=== PATIENT | male | born 1955 | race Two or more races ===

== ENCOUNTER 2024-11-17 15:29 | Inpatient (IN) | payer OTHER ==
[~2024-11-17] VITALS: Ht 190.5 cm; Wt 103.0 kg
--- NOTE | 2024-11-17 15:45 | ED.PDOC ---
HPI Comments 69 y.o male presents to the ED via EMS for a chief complaint of palpitations and chest discomfort s/p lifting a heavy car part today, that is now associated with chest pressure. EMS reports on scene, HR read 150, was AFib RVR. EMS administrated 150 CC IV fluid bolus. Patient reports similar episode years ago s/p drinking an energy drink but was never evaluated for it. Patient denies any SOB, nausea, vomiting, fever, chills. No medical history or allergies reported. Time Seen by MD: 15:38 Reviewed Notes: Nurses Notes, Director [employer] Notes, Medications, Allergies Allergies: Coded Allergies: NO KNOWN ALLERGIES (Unverified , 11/17/24) Information Source: Patient, Emergency Med Personnel Mode of Arrival: EMS Severity: Moderate Timing: Hours Duration: Since onset Prehospital treatment: 12 Lead EKG, Manufacturing Management Associate, IVF Location: Substernal Radiation: No Radiation Quality: Pressure, Aching Onset: At Rest Cardiac Risk Factors: None PE Risk Factors: None History of: Similar pain in past Modifying Factors: Nothing Associated Signs and Symptoms: Palpitations Past Medical History PAST MEDICAL HISTORY: Denies Surgical History: Denies all surgeries Family History Family History: Reviewed,noncontributory to illness Social History Smoker: Non-Smoker Alcohol: Denies ETOH Use Drugs: Denies Drug Use Lives In: Home Constitutional: denies: chills, diaphoresis, fatigue, fever, malaise, sweats, weakness, others EENTM: denies: blurred vision, double vision, ear bleeding, ear discharge, ear drainage, ear pain, ear ringing, eye pain, eye redness, hearing loss, mouth pain, mouth swelling, nasal discharge, nose bleeding, nose congestion, nose pain, photophobia, tearing, throat pain, throat swelling, voice changes, others Respiratory: denies: cough, hemoptysis, orthopnea, SOB at rest, shortness of breath, SOB with excertion, stridor, wheezing, others Cardiovascular: reports: chest pain, palpitations; denies: dizzy spells, diapho resis, Dyspnea on exertion, edema, irregular heart beat, left arm pain, lightheadedness, PND, syncope, others Gastrointestinal: denies: abdomen distended, abdominal pain, blood streaked bowels, constipated, diarrhea, dysphagia, difficulty swallowing, hematemesis, melena, nausea, poor appetite, poor fluid intake, rectal bleeding, rectal pain, vomiting, others Genitourinary: denies: burning, dysuria, flank pain, frequency, hematuria, incontinence, penile discharge, penile sore, pain, testicle pain, testicle swelling, urgency, others Neurological: denies: dizziness, fainting, headache, left sided numbness, left sided weakness, numbness, paresthesia, pre-existing deficit, right sided numbness, right sided weakness, seizure, speech problems, tingling, tremors, weakness, others Musculoskeletal: denies: back pain, gout, joint pain, joint swelling, muscle pain, muscle stiffness, neck pain, others Integumetry: denies: bruises, change in color, change in hair/nails, dryness, laceration, lesions, lumps, rash, wounds, others Allergic/Immunocompromised: denies: Difficulty Healing, Frequent Infections, Hives, Itching, others Hematologic/Lymphatic: denies: anemia, blood clots, easy bleeding, easy bruising, swollen glands, others Endocrine: denies: excessive hunger, excessive sweating, excessive thirst, excessive urination, flushing, intolerance to cold, intolerance to heat, unexplained weight gain, unexplained weight loss, others Psychiatric: denies: anxiety, bipolar disorder, depression, hopeless, panic disorder, schizophrenia, sleepless, suicidal, others All Other Systems: Reviewed and Negative Physical Exam General Appearance: No Apparent Distress, Normal HEENT: Other (Pupils and face symmetric. Moist mucous membranes.) Neck: Full Range of Motion, Normal Inspection Respiratory: Lungs Clear, No Accessory Muscle Use, No Respiratory Distress, Normal Breath Sounds Cardiovascular: No Edema, No JVD, Tachycardia Breast Exam: Deferred Gastrointestinal: Non Tender, Soft Genitalia: Deferred Pelvic: Deferred Rectal: Deferred Extremities: Normal inspection, Normal range of motion, Non-tender, No pedal edema Neurologic: Alert (Oriented x4), Normal Affect, Normal Mood, Other (Ambulatory) Cerebellar Function: NOT DONE Reflexes: NOT DONE Skin: Dry, Normal Color, Warm Lymphatic: NOT DONE EKG EKG #1: Comments Wide complex tachycardia, rate 245, QRS 136, QTC 501, indeterminate axis, unable to evaluate for ST/T changes due to rapid rate EKG #2: Comments Sinus or ectopic atrial tachycardia, rate 126, normal IA and QRS intervals, QTC 451, right axis deviation, normal QRS, lateral ST depression EKG #3: Comments Sinus rhythm, rate 60, normal intervals, normal axis, normal QRS, no ST/T changes. Was a procedure done? Was a procedure done?: No CP Differential Dx Differential Diagnosis: A-fib, A-Flutter, Anxiety / Panic Attack, Electrolyte Disorder, Heart Failure, MAT, ME, Pulmonary Embolus, Sinus Tachycardia, Torsades De Pointes, Ventricular Dysrhythmia, V-Tach Differential Diagnosis: Angina, Chest Wall Pain, Myocardial Infarction, Pericarditis X-Ray, Labs, Meds, VS Vital Signs Date Time Temp Pulse Resp B/P (MAP) Pulse Ox O2 Delivery O2 Flow Rate FiO2 11/17/24 18:54 60 11/17/24 18:32 122 11/17/24 18:00 98.3 127 12 121/76 (91) 95 98.3 11/17/24 17:00 98.2 129 18 126/97 (107) 93 98.2 11/17/24 16:56 126 11/17/24 15:50 98.2 124 18 123/97 (106) 95 98.2 11/17/24 15:50 123 18 94 Room Air* 0 21 11/17/24 15:38 245 11/17/24 15:29 97.8 130 20 151/112 (125) 96 97.8 Lab Test 11/17/24 17:45 11/17/24 16:50 11/17/24 16:20 Range/Units Troponin I High Sensitivity 45 31 </=54 ng/L White Blood Count 8.3 4.4-10.8 10^3/uL Red Blood Count 5.21 4.5-5.90 10^6/uL Hemoglobin 17.1 13.5-17.5 g/dL Hematocrit 48.8 41.0-53.0 % Mean Corpuscular Volume 93.7 80.0-100.0 fL Mean Corpuscular Hemoglobin 32.8 H 28.0-32.0 pg Mean Corpuscular Hemoglobin Concent 35.0 32.0-36.0 g/dL Red Cell Distribution Width 13.0 11.8-14.3 % Platelet Count 216 140-450 10^3/uL Mean Platelet Volume 7.0 6.9-10.8 fL Neutrophils (%) (Auto) 70.0 37.0-80.0 % Lymphocytes (%) (Auto) 20.6 10.0-50.0 % Monocytes (%) (Auto) 8.0 0.0-12.0 % Eosinophils (%) (Auto) 0.9 0.0-7.0 % Basophils (%) (Auto) 0.5 0.0-2.0 % Neutrophils # (Auto) 5.8 1.6-8.6 10 ^3/uL Lymphocytes # (Auto) 1.7 0.4-5.4 10 ^3/uL Monocytes # (Auto) 0.7 0-1.3 10 ^3/uL Eosinophils # (Auto) 0.1 0-0.8 10 ^3/uL Basophils # (Auto) 0 0-0.2 10 ^3/uL Nucleated Red Blood Cells 0.3 % Sodium Level 143 136-145 mmol/L Potassium Level 4.2 3.5-5.1 mmol/L Chloride Level 110 H 98-107 mmol/L Carbon Dioxide Level 21 20-31 mmol/L Anion Gap 12 5-15 Blood Urea Nitrogen 8 L 9-23 mg/dL Creatinine 0.75 0.700-1.30 mg/dL Glomerular Filtration Rate Calc 98 >90 mL/min BUN/Creatinine Ratio 10.7 10.0-20.0 Serum Glucose 157 H 74-106 mg/dL Calcium Level 10.1 8.7-10.4 mg/dL B-Type Natriuretic Peptide 30.90 0-100 pg/mL Thyroid Stimulating Hormone (TSH) 2.26 0.55-4.78 uIU/mL Urine Color Colorless Yellow Urine Clarity Clear Clear Urine pH 6.5 5.0-9.0 Urine Specific [place] 1.004 1.001-1.035 Urine Protein Negative Negative Urine Ketones Negative Negative Urine Blood Negative Negative /uL Urine Nitrite Negative Negative Urine Bilirubin Negative Negative Urine Urobilinogen Normal Negative mg/dL Urine Leukocyte Esterase Negative Negative /uL Urine RBC None seen 0 - 3 /hpf Urine Microscopic WBC < 1 0-3 /HPF Urine Squamous Epithelial Cells None seen <5 /hpf Urine Bacteria None seen None Seen /hpf Urine Glucose Normal Normal mg/dL Urine Opiates Screen Neg NEGATIVE Urine Fentanyl Screen Neg NEGATIVE Urine Barbiturates Screen Neg NEGATIVE Urine Phencyclidine Screen Neg NEGATIVE Urine Amphetamines Screen Neg NEGATIVE Urine Benzodiazepines Screen Neg NEGATIVE Urine Cocaine Screen Neg NEGATIVE Urine Cannabinoids Screen Neg NEGATIVE Current Medications Medications (Trade) Dose Ordered Sig/Sanjuanita Route Start Time Stop Time Status Last Admin Amiodarone HCl 100 ml @ 600 mls/hr ONCE ONCE IV 11/17/24 15:45 11/17/24 15:54 DC 11/17/24 15:49 Aspirin 325 mg ONCE ONCE PO 11/17/24 16:00 11/17/24 16:01 DC 11/17/24 16:02 Sodium Chloride 1,000 ml @ 1,000 mls/hr Q1H ONCE IV 11/17/24 17:15 11/17/24 18:14 DC 11/17/24 17:29 PROCEDURE(s): CXRP - CHEST PORTABLE REASON: afib rvr ORDER NUMBER(s): [id number], ACCESSION NUMBER(s): [id number] CHEST RADIOGRAPH Indication: afib rvr Technique: Single frontal view of the chest was obtained COMPARISON: None FINDINGS: Lines and Tubes: None Lungs: Clear Pleura: No effusion. No pneumothorax. Cardiomediastinal contours: Unremarkable Bones: Unremarkable IMPRESSION: 1. No acute disease. X-Ray, Labs, Meds, VS Comment 69-year-old male with no significant past medical history presenting with chest pressure, palpitations and tachycardia Initial vitals remarkable for heart rate to 45 Exam remarkable for tachycardia Rhythm strip independently interpreted by me: Wide complex tachycardia, rate to 45 Chest x-ray IMPRESSION: 1. No acute disease. CBC, basic metabolic panel, BNP and 2 serial troponins unremarkable. UA unremarkable. Urine drug screen negative Patient treated with the following in the ED: Patient initially converted to sinus tach when transferred from the EMS gurney to a bed. Amiodarone 150 mg IV bolus followed by amiodarone infusion, then 1 L 0.9 normal saline IV bolus On re-evaluation, patient was in a sinus rhythm at a rate of 60. The amiodarone infusion was discontinued. Plan is to admit the patient for Cardiology evaluation. Case discussed with Dr. Butler, who will see the patient in the ED. Time of 1ST Reevaluation: 14:00 Reevaluation 1ST: Unchanged Time of 2ND Reevaluation: 19:52 Reevaluation 2ND: Improved Patient Education/Counseling: Diagnosis, Treatment, Prognosis Family Education/Counseling: No Family Present Departure 1 Departure Time of Disposition: 18:30 Impression: Primary Impression: Tachycardia Disposition: 09 ADMITTED INPATIENT Admit to: Tele Condition: Guarded Critical Care Note Critical Care Time?: Yes (45 min-critical care time only) Critical care comment: Critical care time including multiple bedside re-evaluations, review of lab and imaging studies, and discussion of the case with the admitting provider. Patient is high risk for hemodynamic decompensation. Stability Stability form required: No Heart Score Heart Score: Heart Score Response (Comments) Value History Moderate Suspicious [address]-Deviation 2 Age >65 2 Risk Factors No known risk factors 0 Troponin Normal limit 0 Total 5 I personally scribed for MATEO REYES MD ([facility]) on 11/17/24 at 15:45. Electronically submitted by Regina Buck ([facility]). MATEO REYES MD November 17, 2024 15:45
[2024-11-17] MEDS: AMIODARONE BOLUS KIT 100 ML IV ONE ×2 (15:49→15:50)
[2024-11-17 15:50] VITALS: PULSE 123; RESP 18; O2SAT 94
[2024-11-17] MEDS: AMIODARONE 360mg/200mL PREMIX 200 ML IV ONE (16:00)
[2024-11-17] MEDS: ASPirin 325 MG TAB PO ONE (16:02)
--- NOTE | 2024-11-17 16:16 | DVH ---
CHEST RADIOGRAPH Indication: afib rvr Technique: Single frontal view of the chest was obtained COMPARISON: None FINDINGS: Lines and Tubes: None Lungs: Clear Pleura: No effusion. No pneumothorax. Cardiomediastinal contours: Unremarkable Bones: Unremarkable IMPRESSION: 1. No acute disease.
[2024-11-17 16:59] LABS: Urine Bacteria None Seen /hpf (None Seen)
[2024-11-17 16:59] LABS: Basophils # (auto) 0 10 ^3/uL (0-0.2); Basophils % (auto) 0.5 % (0.0-2.0); Eosinophils # (auto) 0.1 10 ^3/uL (0-0.8); Eosinophils % (auto) 0.9 % (0.0-7.0); Hematocrit 48.8 % (41.0-53.0); Hemoglobin 17.1 g/dL (13.5-17.5); Lymphocytes # (auto) 1.7 10 ^3/uL (0.4-5.4); Lymphocytes % (auto) 20.6 % (10.0-50.0); Mean Corpuscular Hemoglobin 32.8 pg (28.0-32.0); Mean Corpuscular Volume 93.7 fL (80.0-100.0); Monocytes # (auto) 0.7 10 ^3/uL (0-1.3); Neutrophils # (auto) 5.8 10 ^3/uL (1.6-8.6); Nucleated Red Blood Cells % 0.3 %; Platelet Count (auto) 216 10^3/uL (140-450); Red Blood Cells 5.21 10^6/uL (4.5-5.90); White Blood Cell 8.3 10^3/uL (4.4-10.8)
[2024-11-17 17:06] LABS: Urine Blood Negative /uL (Negative); Urine Clarity Clear (Clear); Urine Color Colorless (Yellow); Urine Protein, UAD Negative (Negative); Urine Specific Gravity 1.004 (1.001-1.035); Urine Squamous Epithelial Cell None Seen /hpf (<5); Urine Urobilinogen Normal (Negative); Urine WBC < 1 /HPF (0-3); Urine pH 6.5 (5.0-9.0)
[2024-11-17 17:10] LABS: Chloride 110 mmol/L (98-107); Potassium 4.2 mmol/L (3.5-5.1); Sodium 143 mmol/L (136-145)
[2024-11-17 17:11] LABS: Anion Gap 12 (5-15); Calcium 10.1 mg/dL (8.7-10.4); Carbon Dioxide 21 mmol/L (20-31)
[2024-11-17 17:16] LABS: BUN/Creatinine Ratio 10.7 (10.0-20.0); Blood Urea Nitrogen 8 mg/dL (9-23); Glucose 157 mg/dL (74-106)
[2024-11-17] MEDS: SODIUM CHLORIDE 0.9% 1,000 ML IV ONE (17:29)
[2024-11-17 17:30] LABS: Amphetamine Screen, Urine Neg (NEGATIVE); Barbiturate Scree,Urine Neg (NEGATIVE); Benzodiazephine Screen, Urine Neg (NEGATIVE); Cannabinoid Screen, Urine Neg (NEGATIVE); Cocaine Screen, Urine Neg (NEGATIVE); Opiate Scree,Urine Neg (NEGATIVE); Phencyclidine Screen, Urine Neg (NEGATIVE)
[2024-11-17] MEDS ORDERED: MORPHINE SULFATE INJ 2 MG/ml SYRG IV PRN (19:15)
[2024-11-17] MEDS ORDERED: ONDANSETRON HCL 4 MG/2 ML VIAL IV PRN (19:15)
[2024-11-17] MEDS ORDERED: NITROGLYCERIN 0.4 MG SL TAB SL PRN (19:15)
[2024-11-17 19:28] VITALS: PULSE 71; RESP 18; O2SAT 96
[2024-11-18] MEDS ORDERED: ONDANSETRON HCL 4 MG/2 ML VIAL IV PRN (01:00)
[2024-11-18] MEDS ORDERED: NITROGLYCERIN 0.4 MG SL TAB SL PRN (01:00)
[2024-11-18] MEDS ORDERED: MORPHINE SULFATE INJ 2 MG/ml SYRG IV PRN (01:00)
[2024-11-18 09:08] VITALS: PULSE 50; RESP 19; O2SAT 96
[2024-11-18] MEDS ORDERED: ASPirin 81 mg TAB PO SCH (10:00)
[2024-11-18] MEDS ORDERED: ENOXAPARIN SOD 40 MG/0.4 ML SYRINGE SC SCH (10:00)
[2024-11-18] MEDS: ASPirin-EC 81 mg tab PO SCH (10:48)
--- NOTE | 2024-11-18 12:22 | ECG ---
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
[2024-11-18 15:58] VITALS: BP 143/89; PULSE 56; RESP 18; TEMP 97.7; O2SAT 95
[2024-11-18 20:00] VITALS: PULSE 69
[2024-11-18 21:00] VITALS: BP 144/85; PULSE 55; RESP 18; TEMP 98; O2SAT 95
[2024-11-18] MEDS: ATORVASTATIN 20 MG TAB PO SCH (22:14)
--- NOTE | 2024-11-18 23:59 | DVHINCON2 ---
Date of service: November 17, [address] Butler Reason for Consultation Wide QRS tachycardia History of Present Illness This is a 69 year old male with unremarkable PMH who was brought in by EMS with complaints of palpitations and chest discomfort s/p lifting a heavy car part today. EMS administrated 150 CC IV fluid bolus. Patient reports similar episode years ago s/p drinking an energy drink but was never evaluated for it. CBC is WNL. BMP is WNL. Trops 31 > 45. BNP normal. Tox screen negative. UA negative. Chest x-ray shows NAD. EKG: wide complex tachycardia VR 240 and converted to sinus tachycardia in the 130 -> back into sinus rhythm VR 60. Patient was admitted to the hospital. I am asked to consult on this patient. Family History: Patient reports no known family medical history. Allergies: Coded Allergies: NO KNOWN ALLERGIES (Unverified , 11/17/24) Home Meds No Active Prescriptions or Reported Meds Current Medications Current Medications Medications (Trade) Dose Ordered Sig/Sanjuanita Route PRN Reason Start Time Stop Time Status Last Admin Aspirin 81 mg DAILY PO 11/18/24 10:00 11/17/24 22:22 DC Enoxaparin Sodium (Lovenox) 40 mg DAILY SC 11/18/24 10:00 11/17/24 22:22 DC Aspirin (Ecotrin Enteric Coated Tablet) 81 mg DAILY PO 11/18/24 10:00 11/18/24 10:48 Atorvastatin Calcium (Lipitor) 40 mg HS PO 11/18/24 22:00 11/18/24 22:14 Ondansetron HCl (Zofran) 4 mg Q6HPRN PRN IV NAUSEA / VOMITING 11/18/24 01:00 Nitroglycerin (Ntrostat Sublingual) 0.4 mg Q5MINP PRN SL FOR CHEST PAIN 11/18/24 01:00 Morphine Sulfate 2 mg Q30M PRN IV FOR CHEST PAIN 11/18/24 01:00 Review of Systems Constitutional: denies: chills, diaphoresis, fatigue, fever, malaise, sweats, weakness, others EENTM: denies: blurred vision, double vision, ear bleeding, ear discharge, ear drainage, ear pain, ear ringing, eye pain, eye redness, hearing loss, mouth pain, mouth swelling, nasal discharge, nose bleeding, nose congestion, nose pain, photophobia, tearing, throat pain, throat swelling, voice changes, others Respiratory: denies: cough, hemoptysis, orthopnea, SOB at rest, shortness of breath, SOB with excertion, stridor, wheezing, others Cardiovascular: reports: chest pain, palpitations; denies: dizzy spells, diaphoresis, Dyspnea on exertion, edema, irregular heart beat, left arm pain, lightheadedness, PND, syncope, others Gastrointestinal: denies: abdomen distended, abdominal pain, blood streaked bowels, constipated, diarrhea, dysphagia, difficulty swallowing, hematemesis, melena, nausea, poor appetite, poor fluid intake, rectal bleeding, rectal pain, vomiting, others Genitourinary: denies: burning, dysuria, flank pain, frequency, hematuria, incontinence, penile discharge, penile sore, pain, testicle pain, testicle swelling, urgency, others Neurological: denies: dizziness, fainting, headache, left sided numbness, left sided weakness, numbness, paresthesia, pre-existing deficit, right sided numbness, right sided weakness, seizure, speech problems, tingling, tremors, weakness, others Musculoskeletal: denies: back pain, gout, joint pain, joint swelling, muscle pain, muscle stiffness, neck pain, others Integumetry: denies: bruises, change in color, change in hair/nails, dryness, laceration, lesions, lumps, rash, wounds, others Allergic/Immunocompromised: denies: Difficulty Healing, Frequent Infections, Hives, Itching, others Hematologic/Lymphatic: denies: anemia, blood clots, easy bleeding, easy bruising, swollen glands, others Endocrine: denies: excessive hunger, excessive sweating, excessive thirst, excessive urination, flushing, intolerance to cold, intolerance to heat, unexplained weight gain, unexplained weight loss, others Psychiatric: denies: anxiety, bipolar disorder, depression, hopeless, panic disorder, schizophrenia, sleepless, suicidal, others All Other Systems: Reviewed and Negative Vital Signs Vital Signs Date Time Temp Pulse Resp B/P (MAP) Pulse Ox O2 Delivery O2 Flow Rate FiO2 11/18/24 21:00 98.0 55 18 144/85 (104) 95 98.0 11/18/24 15:58 Room Air* 0 21 Physical Exam GENERAL: Alert and oriented x 3. No acute distress. EYES: PERRL, EOMI. Anicteric. HENT: Moist mucous membranes. LUNGS: Clear to auscultation bilaterally. CARDIOVASCULAR: Irregular rate and rhythm. ABDOMEN: Soft, non-tender and non-distended. EXTREMITIES: No edema. NEUROLOGIC: No focal neurological deficits. SKIN: Warm, dry. Labs/Diagnostic Data Labs Test 11/18/24 00:51 11/17/24 16:50 11/17/24 16:20 Range/Units Magnesium Level 2.0 1.6-2.6 mg/dL Troponin I High Sensitivity 44 </=54 ng/L White Blood Count 8.3 4.4-10.8 10^3/uL Red Blood Count 5.21 4.5-5.90 10^6/uL Hemoglobin 17.1 13.5-17.5 g/dL Hematocrit 48.8 41.0-53.0 % Mean Corpuscular Volume 93.7 80.0-100.0 fL Mean Corpuscular Hemoglobin 32.8 H 28.0-32.0 pg Mean Corpuscular Hemoglobin Concent 35.0 32.0-36.0 g/dL Red Cell Distribution Width 13.0 11.8-14.3 % Platelet Count 216 140-450 10^3/uL Mean Platelet Volume 7.0 6.9-10.8 fL Neutrophils (%) (Auto) 70.0 37.0-80.0 % Lymphocytes (%) (Auto) 20.6 10.0-50.0 % Monocytes (%) (Auto) 8.0 0.0-12.0 % Eosinophils (%) (Auto) 0.9 0.0-7.0 % Basophils (%) (Auto) 0.5 0.0-2.0 % Neutrophils # (Auto) 5.8 1.6-8.6 10 ^3/uL Lymphocytes # (Auto) 1.7 0.4-5.4 10 ^3/uL Monocytes # (Auto) 0.7 0-1.3 10 ^3/uL Eosinophils # (Auto) 0.1 0-0.8 10 ^3/uL Basophils # (Auto) 0 0-0.2 10 ^3/uL Nucleated Red Blood Cells 0.3 % Sodium Level 143 136-145 mmol/L Potassium Level 4.2 3.5-5.1 mmol/L Chloride Level 110 H 98-107 mmol/L Carbon Dioxide Level 21 20-31 mmol/L Anion Gap 12 5-15 Blood Urea Nitrogen 8 L 9-23 mg/dL Creatinine 0.75 0.700-1.30 mg/dL Glomerular Filtration Rate Calc 98 >90 mL/min BUN/Creatinine Ratio 10.7 10.0-20.0 Serum Glucose 157 H 74-106 mg/dL Calcium Level 10.1 8.7-10.4 mg/dL B-Type Natriuretic Peptide 30.90 0-100 pg/mL Thyroid Stimulating Hormone (TSH) 2.26 0.55-4.78 uIU/mL Urine Color Colorless Yellow Urine Clarity Clear Clear Urine pH 6.5 5.0-9.0 Urine Specific [place] 1.004 1.001-1.035 Urine Protein Negative Negative Urine Ketones Negative Negative Urine Blood Negative Negative /uL Urine Nitrite Negative Negative Urine Bilirubin Negative Negative Urine Urobilinogen Normal Negative mg/dL Urine Leukocyte Esterase Negative Negative /uL Urine RBC None seen 0 - 3 /hpf Urine Microscopic WBC < 1 0-3 /HPF Urine Squamous Epithelial Cells None seen <5 /hpf Urine Bacteria None seen None Seen /hpf Urine Glucose Normal Normal mg/dL Urine Opiates Screen Neg NEGATIVE Urine Fentanyl Screen Neg NEGATIVE Urine Barbiturates Screen Neg NEGATIVE Urine Phencyclidine Screen Neg NEGATIVE Urine Amphetamines Screen Neg NEGATIVE Urine Benzodiazepines Screen Neg NEGATIVE Urine Cocaine Screen Neg NEGATIVE Urine Cannabinoids Screen Neg NEGATIVE Assessment Wide QRS tachycardia. Plan/Recommendation I agree with your ongoing assessment and care of plan. Advised for cardiac cath. Risks and benefits discussed with the patient. Seen with Dr. Latrell Brown Lipitor. Morphine for pain management. Nitro SL. Additional plan as per the hospital course. A total of 45 minutes was spent reviewing the patient record, examining the patient, making a diagnostic and therapeutic plan, discussing this plan with medical personnel, following up on diagnostic studies and following the patient for clinical stability excluding any and all procedures. At least 50% of this time was spent in direct, [id number] contact. Plan discussed with: Patient OLIVA,CARLOS Posada MD November 18, 2024 23:59
[2024-11-19] VITALS (10 sets, daily range): BP systolic 108–160; BP diastolic 69–102; PULSE 54–88; RESP 12–18; TEMP 36.6; O2SAT 92–100
--- NOTE | 2024-11-19 00:02 | DVHPN2 ---
Progress Note - Dictate Date Seen: November 18, 2024 Medical Necessity Reason Pt with a Central, PICC or Fol: No Subjective Patient was seen and evaluated in follow up. Patient is complaining of intermittent chest palpitations. Patient is scheduled for left heart cath tomorrow. Risks and benefits were discussed with the patient. Troponin remains negative. MG is WNL at 2.0. TSH is normal at 2.26. Telemetry reviewed. vital signs Vital Sign Date Time Temp Pulse Resp B/P (MAP) Pulse Ox O2 Delivery O2 Flow Rate FiO2 11/18/24 21:00 98.0 55 18 144/85 (104) 95 98.0 11/18/24 15:58 Room Air* 0 21 Total Intake and Output 11/17/24 11/17/24 11/18/24 15:00 23:00 07:00 Intake Total 1166.66 ml Balance 1166.66 ml medications Current Medications Medications Dose Ordered Sig/Sanjuanita Route Start Time Stop Time Status Last Admin Dose Admin Aspirin 81 mg DAILY PO 11/18/24 10:00 11/18/24 10:48 Atorvastatin Calcium 40 mg HS PO 11/18/24 22:00 11/18/24 22:14 Ondansetron HCl 4 mg Q6HPRN PRN IV 11/18/24 01:00 Nitroglycerin 0.4 mg Q5MINP PRN SL 11/18/24 01:00 Morphine Sulfate 2 mg Q30M PRN IV 11/18/24 01:00 objective GENERAL: Alert and oriented x 3. No acute distress. EYES: PERRL, EOMI. Anicteric. HENT: Moist mucous membranes. LUNGS: Clear to auscultation bilaterally. CARDIOVASCULAR: Regular rate and rhythm. ABDOMEN: Soft, non-tender and non-distended. EXTREMITIES: No edema. NEUROLOGIC: No focal neurological deficits. SKIN: Warm, dry. laboratory and microbiology Laboratory Tests 11/17/24 16:50 Test 11/17/24 16:50 Range/Units Serum Glucose 157 H 74-106 mg/dL Problem List Wide QRS tachycardia. Assessment/Plan Continued all current supportive medical care. Cardiac cath. Risks and benefits discussed with the patient. Echocardiogram. Aspirin, Lipitor. Morphine for pain management. Nitro SL. Additional plan as per the hospital course. Plan discussed with: Patient CARLOS OLIVA MD November 19, 2024 00:02
--- NOTE | 2024-11-19 02:07 | DVHHP ---
ADMIT DATE: 11/18/2024 CHIEF COMPLAINT: Coming in for palpitations and chest pressure. HISTORY OF PRESENT ILLNESS: A 69-year-old male, with no significant past medical history, who presents to Emergency Room with new onset of chest palpitations and chest pressure. The patient apparently was working at home, on his car. When he lifted a car part, patient suddenly experienced chest palpitations and some discomfort. The patient said at the time also had some numbness and tingling in his face on both sides. The patient went into his home, sat down, checked his pulse, was elevated in the 150s. The patient sat there to see whether it would resolve on its own. The patient says he has had similar symptoms in the past, but only lasting for a few seconds, and given this event was not resolving, he ended up calling EMS. EMS found him to be in atrial fib with RVR, and was brought in. The patient says typically he had these symptoms in the past where he gets palpitations and they would last very briefly and go away. He has never been diagnosed with irregular heart rhythm. He does not have any heart conditions. He has not been recently sick. He denies any fevers or chills, cough or phlegm, diarrhea, constipation, bloody or tarry stools. The patient denies any exertional chest pains. He says he is pretty active, and does not have again any cardiac problems. The patient otherwise on transfer here by EMS, was given 150 mL bolus of fluids and was brought into the Emergency Room. On arrival here, patient was found to be in wide QRS tachycardia, given amiodarone 150 bolus and started on a drip. The patient converted back into sinus rhythm at his normal baseline heart rates in the 60s, where he typically lives in. PAST MEDICAL HISTORY: None. PAST SURGICAL HISTORY: None. SOCIAL HISTORY: Denies tobacco, alcohol or illicit drugs. MEDICATIONS AT HOME: The patient currently takes no medications. MEDICATION ALLERGIES: No known drug allergies. REVIEW OF SYSTEMS: A 10-point review of system was covered with patient and was negative with the exception to what was present in the history of present illness. PHYSICAL EXAMINATION: VITAL SIGNS: Temperature 97.9, pulse rate of 71, respiratory rate of 16, blood pressure 120/86. Pulse ox about 95% on room air. GENERAL: Seems to be alert and oriented x 4, not in acute distress male, lying in bed. HEENT: Normocephalic, atraumatic. Extraocular muscles are intact. Pupils are equally round, react to light and accommodation. Mucous membranes are moist. CARDIOVASCULAR: S1, S2 positive. Regular rate and rhythm. No rubs, gallops or murmurs. LUNGS: Seemed to be clear to auscultation bilaterally. No wheezes, rhonchi or rales. ABDOMEN: Seems to be soft, nontender, nondistended. Positive bowel sounds. No guarding, no rebound. EXTREMITIES: Lower extremities: No lower extremity edema, clubbing or cyanosis. NEUROLOGIC: No focal deficits. Cranial nerve testing 2-12 overall seems to be intact. LABORATORY WORKUP: Shows a white count of 8.3, H and H of 17.1/48.8, platelet count of 216,000. Sodium 142, potassium 4.2, chloride of 110, carbon dioxide of 21, anion gap of 12. BUN of 8, creatinine 0.75. Glucose of 157, calcium 10.1. BNP of 30.9. Troponins of 31 and repeat of 45. TSH of 2.26. Urinalysis was negative for infection. Toxicology screening was negative. IMAGING: Chest x-ray shows no acute cardiopulmonary disease process. EKG initially showed wide QRS tachycardia, ventricular rate of 245. Second repeated EKG after transferring into the bed in the Emergency Room since patient converted on his own to sinus tachycardic rhythm with a rate of [address] changes. Third EKG showed sinus rhythm, ventricular rate of 60, normal intervals, normal axis, normal QRS without any ST wave changes. DIAGNOSIS: Wide-complex tachycardia. PLAN: After being admitted here to the ER, patient went from wide-QRS tachycardia to sinus tachycardia type of rhythm. Initially by EMS, they believed that the patient was in AFib with RVR. The patient's history seems consistent with atrial fib with RVR that seems to be paroxysmal in nature. Cardiology did see the patient in ED and wants to do an angiogram in the morning to rule out any coronary blockages. The patient did have 2 troponins, which have been negative so far and 3rd troponin is currently pending. The patient to have also magnesium level drawn at this time. The patient to also have CBC and BMP for the morning. The patient currently will be maintained n.p.o. Aspirin enteric coated 81 mg a day as well as Lipitor 40 mg once a day will be given. The patient will be avoided from any beta-blockers, given his heart rate which is at 60 currently. The patient's amiodarone drip, which was initiated by the ER, was discontinued due to his heart rates currently. The patient is asymptomatic at this point. The patient to have nitro sublingual 0.4 mg p.r.n. q. 5 minutes as needed for chest pain, Zofran 4 mg IV p.r.n. for nausea and vomiting. SCDs to bilateral lower extremities for DVT prophylaxis. The patient is a full code. Further recommendations will depend on patient's hospital progression. Min Ruffin MD LM/KILEY/BLUE TID: [id number] RECEIPT: [id number] MTDD
[2024-11-19 06:52] LABS: INR 1.12 (0.9-1.15); Partial Thromboplastin Time 29.2 SEC (24.5-34.5); Prothrombin Time 11.7 sec (9.3-11.8)
[2024-11-19] MEDS: IODIXANOL 320MG/ML 100ML BTL IV ONE (08:24)
[2024-11-19] MEDS: ANGIOMAX 250 MG VIAL IV ONE (08:33)
[2024-11-19] MEDS: VERAPAMIL 2.5MG/ML INJ 2ML VIAL IV ONE (08:33)
[2024-11-19] MEDS: HEPARIN SODIUM (PORCINE) 5000 UNITS/ML 1ML VIAL ONE (08:33)
[2024-11-19] MEDS: SODIUM CHL 0.9% 0 ML ONE (08:34)
[2024-11-19] MEDS: MIDAZOLAM HCL 2MG/2ML 2ml VIAL (1mg/ml) ONE (08:34)
[2024-11-19] MEDS: fentaNYL CITRATE 100 MCG/2 ML VL ONE (08:34)
[2024-11-19] MEDS: LIDOCAINE 2%HCL (LOCAL ANESTH.) INJ 20ML MDV ONE (08:35)
[2024-11-19] MEDS ORDERED: METO25TA36 PO (10:40)
--- NOTE | 2024-11-19 11:47 | DVHDS2 ---
Discharge Summary Date of Admission November 17, 2024 at 19:09 Date of Discharge: November 19, 2024 Labs/Diagnostic Data: Laboratory Results Test 11/19/24 05:36 11/18/24 00:51 11/17/24 16:50 11/17/24 16:20 Prothrombin Time 11.7 sec (9.3-11.8) Prothrombin Time INR 1.12 (0.9-1.15) Activated Partial Thromboplast Time 29.2 SEC (24.5-34.5) Magnesium Level 2.0 mg/dL (1.6-2.6) Troponin I High Sensitivity 44 ng/L (</=54) White Blood Count 8.3 10^3/uL (4.4-10.8) Red Blood Count 5.21 10^6/uL (4.5-5.90) Hemoglobin 17.1 g/dL (13.5-17.5) Hematocrit 48.8 % (41.0-53.0) Mean Corpuscular Volume 93.7 fL (80.0-100.0) Mean Corpuscular Hemoglobin 32.8 pg (28.0-32.0) Mean Corpuscular Hemoglobin Concent 35.0 g/dL (32.0-36.0) Red Cell Distribution Width 13.0 % (11.8-14.3) Platelet Count 216 10^3/uL (140-450) Mean Platelet Volume 7.0 fL (6.9-10.8) Neutrophils (%) (Auto) 70.0 % (37.0-80.0) Lymphocytes (%) (Auto) 20.6 % (10.0-50.0) Monocytes (%) (Auto) 8.0 % (0.0-12.0) Eosinophils (%) (Auto) 0.9 % (0.0-7.0) Basophils (%) (Auto) 0.5 % (0.0-2.0) Neutrophils # (Auto) 5.8 10 ^3/uL (1.6-8.6) Lymphocytes # (Auto) 1.7 10 ^3/uL (0.4-5.4) Monocytes # (Auto) 0.7 10 ^3/uL (0-1.3) Eosinophils # (Auto) 0.1 10 ^3/uL (0-0.8) Basophils # (Auto) 0 10 ^3/uL (0-0.2) Nucleated Red Blood Cells 0.3 % Sodium Level 143 mmol/L (136-145) Potassium Level 4.2 mmol/L (3.5-5.1) Chloride Level 110 mmol/L (98-107) Carbon Dioxide Level 21 mmol/L (20-31) Anion Gap 12 (5-15) Blood Urea Nitrogen 8 mg/dL (9-23) Creatinine 0.75 mg/dL (0.700-1.30) Glomerular Filtration Rate Calc 98 mL/min (>90) BUN/Creatinine Ratio 10.7 (10.0-20.0) Serum Glucose 157 mg/dL (74-106) Calcium Level 10.1 mg/dL (8.7-10.4) B-Type Natriuretic Peptide 30.90 pg/mL (0-100) Thyroid Stimulating Hormone (TSH) 2.26 uIU/mL (0.55-4.78) Urine Color Colorless (Yellow) Urine Clarity Clear (Clear) Urine pH 6.5 (5.0-9.0) Urine Specific [place] 1.004 (1.001-1.035) Urine Protein Negative (Negative) Urine Ketones Negative (Negative) Urine Blood Negative /uL (Negative) Urine Nitrite Negative (Negative) Urine Bilirubin Negative (Negative) Urine Urobilinogen Normal mg/dL (Negative) Urine Leukocyte Esterase Negative /uL (Negative) Urine RBC None seen /hpf (0 - 3) Urine Microscopic WBC < 1 /HPF (0-3) Urine Squamous Epithelial Cells None seen /hpf (<5) Urine Bacteria None seen /hpf (None Seen) Urine Glucose Normal mg/dL (Normal) Urine Opiates Screen Neg (NEGATIVE) Urine Fentanyl Screen Neg (NEGATIVE) Urine Barbiturates Screen Neg (NEGATIVE) Urine Phencyclidine Screen Neg (NEGATIVE) Urine Amphetamines Screen Neg (NEGATIVE) Urine Benzodiazepines Screen Neg (NEGATIVE) Urine Cocaine Screen Neg (NEGATIVE) Urine Cannabinoids Screen Neg (NEGATIVE) Other Laboratory Tests 11/17/24 16:50 Brief Hx & Hospital Course: Patient is a 69 with no past medical history who presented with complaints of new onset chest pain and palpitations in his chest. Patient had checked his pulse at home and was noted to be in the 150s. Patient presented to the ER and was noted to have a wide-complex tachycardia. Troponins were nonelevated. CBC and CMP were within normal limits without electrolyte abnormalities. Cardiology was consulted. UDS was negative. Patient was taken for left heart catheter which did not reveal any CAD. LVEF was 65%. He was advised that patient be discharged on metoprolol. No overnight telemetry arrhythmias were noted with the exception of sinus bradycardia. Patient was monitored for several hours after his left heart cath. Vitals were noted to be stable prior to discharge. Patient to follow-up with cardiology outpatient. [facility] case management arrange follow-up appointments. Condition at Discharge: Good Final Diagnosis/Problems List Chest Pain Secondary Diagnosis: Wide Complex Tachycardia Discharge Disposition: Home Discharge Instruct/Medications Diet: Cardiac 2g Na,low cholest Activity: No Restrictions, As Tolerated Follow Up/Referral: Follow up with cardiology. Discharge Statement: "Patient was advised to return to the ER or call 911 if any headaches, dizziness, shortness of breath, chest pain, abdominal pain, bleeding, fevers, or worsening of medical condition. Patient was counseled about treatment plan, medications, possible side effects, patient�verbalized understanding. All questions were answered to the best of my ability. This discharge took greater then 30 minutes in planning, reviewing documentation, counseling the patient, and discussing with other team members." ASSESSMENT ASSESSMENT Assessment Chest Pain MARITZA MAYO DO November 19, 2024 11:47
--- NOTE | 2024-11-19 21:39 | DVHPN2 ---
Progress Note - Dictate Date Seen: November 19, 2024 Medical Necessity Reason Pt with a Central, PICC or Fol: No Subjective Patient was seen and evaluated in follow up. Patient is complaining minimal chest discomfort. Patient is s/p LHC. Patient is cardiac stable for discharge. Telemetry reviewed. vital signs Vital Sign Date Time Temp Pulse Resp B/P (MAP) Pulse Ox O2 Delivery O2 Flow Rate FiO2 11/19/24 13:00 97.8 63 14 127/77 (94) 95 97.8 11/19/24 08:00 Room Air* 0 21 Total Intake and Output 11/18/24 11/18/24 11/19/24 15:00 23:00 07:00 Intake Total 250 ml 0 ml Balance 250 ml 0 ml medications Current Medications Medications Dose Ordered Sig/Sanjuanita Route Start Time Stop Time Status Last Admin Dose Admin Aspirin 81 mg DAILY PO 11/18/24 10:00 11/19/24 10:52 81 MG Atorvastatin Calcium 40 mg HS PO 11/18/24 22:00 11/18/24 22:14 40 MG Ondansetron HCl 4 mg Q6HPRN PRN IV 11/18/24 01:00 Nitroglycerin 0.4 mg Q5MINP PRN SL 11/18/24 01:00 Morphine Sulfate 2 mg Q30M PRN IV 11/18/24 01:00 objective GENERAL: Alert and oriented x 3. No acute distress. EYES: PERRL, EOMI. Anicteric. HENT: Moist mucous membranes. LUNGS: Clear to auscultation bilaterally. CARDIOVASCULAR: Regular rate and rhythm. ABDOMEN: Soft, non-tender and non-distended. EXTREMITIES: No edema. NEUROLOGIC: No focal neurological deficits. SKIN: Warm, dry. laboratory and microbiology Laboratory Tests 11/17/24 16:50 Test 11/17/24 16:50 Range/Units Serum Glucose 157 H 74-106 mg/dL Problem List Wide QRS tachycardia. Assessment/Plan Continued all current supportive medical care. Cardiac cath. Risks and benefits discussed with the patient. Echocardiogram. Aspirin, Lipitor. Morphine for pain management. Nitro SL. Additional plan as per the hospital course. Plan discussed with: Patient CARLOS OLIVA MD November 19, 2024 13:46
--- NOTE | 2024-11-20 08:47 | DVHOP ---
DATE OF SURGERY: 11/19/2024 TECHNIQUE PERFORMED: * Ultrasound of the right radial artery. * Management of the conscious sedation. * Insertion of a 6-Honduran arterial line in the right radial artery under ultrasound guidance. * Left heart cath. * Left ventriculogram. * [place] selective left and right coronary angiography. ASSISTANTS: Assisted by our staff over here is Grace Finney Daeel, and Rayray Case. INDICATIONS: As follows: The patient came in our Emergency Room with wide complex tachycardia and he had severe jaw pain and procedure is performed to rule out any coronary artery disease. Procedure, risks and benefits discussed in standard manner. Indication, risks and benefits were explained. DESCRIPTION OF PROCEDURE: The patient was brought to [facility]. Right radial area thoroughly cleaned with soap and Betadine. Lidocaine was given. A 6-Honduran arterial line was placed after doing the ultrasound and the patient received a cocktail, 100 mcg of nitroglycerine, 2.5 mg of verapamil, 2000 units of heparin and subsequently, the patient got extra dose of the Versed and fentanyl. The TIG catheter 5-Honduran 4.0 was passed and left angio was done and with the help of the JR4 catheter, the left heart cath was done, the left ventriculogram was done and the right coronary angiography was done and the procedure was completed in a standard manner without any complication. TR band applied. IMPRESSION: * Normal left main. * Left anterior descending artery is widely open and is normal. * Diagonal is normal. * Circumflex artery is a moderately large artery and is normal. No blockage. * The right coronary artery is large dominant artery, widely open and is normal. Posterior descending artery normal. * Ejection fraction of left ventricle is 65% plus. CONCLUSION: * The coronary angiography is normal. * Ejection fraction is 65% and is normal. PLAN OF ACTION: Advised to have aspirin one a day. He will need beta blockers like metoprolol for his wide complex tachycardia, outpatient followup and we will also follow him closely as an outpatient. Randy Nguyen MD MP/ABDI/CARLOTTA/RYAN TID: [id number] RECEIPT: [id number] [facility]
--- NOTE | 2024-11-20 12:40 | ECG ---
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
--- NOTE | 2024-11-21 10:22 | ECG ---
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
--- NOTE | 2024-11-22 17:25 | DVHSR ---
APPROVED REPORT EXAM: LIMITED Two-dimensional and M-mode echocardiogram with Doppler and color Doppler. Blood Pressure: 160/102 mmHg INDICATION WIDE COMPLEX TACHYCARDIA RISK FACTORS Obesity: Height: 6'3, Weight: 227 DIMENSIONS LVDd4.4 (3.8-5.7cm)LA (2D)4.3 (1.9-4.0cm)Aortic Root4.2 (2.0-3.7cm) LVDs2.8 (2.5-4.0cm)LA (MM) (1.9-4.0cm)Aortic Cusp Exc1.7 (1.5-2.0cm) EF (%) 60.0 (55-70%)Rt. Atrium (1.9-4.0cm)Asc. Aorta3.8 cm IVSd1.2 (0.7-1.1cm)RV (D) (1.8-2.4cm) PWd1.0 (0.7-1.1cm) Mitral Valve MitralMitral Stenosis E wave0.55m/sMV Mean GR.mmHg A wave0.83m/sMV Peak GR.mmHg E/A ratio0.72D MVAcm2 DECEL [id number] 1/2 [place] Aortic Valve Aortic ValveAortic Stenosis V10.96m/Miguel Mean GR.2mmHg V21.01m/Miguel Peak GR.4mmHg LVOT Diameter2.5 (1.8-2.4cm)Doppler AVA4.66cm2 Pulmonic Valve V20.90m/s Other Information Quality : Technically LimitedRhythm : Technically limited study due to patient position.body habitus. Conclusion LV EF IS 60% AND IS NORMAL NORMAL TV,PV AND AORTIC VALVE POSTERIOR MITRAL LEAFLET IS MODERATELY CALCIFIED NORMAL RV FUNCTION NO EFFUSION
== END 2024-11-19 14:45 | disposition home or self-care (01) | DRG 287 ==
LOC: ER 15:29 → EDBD 15:29 → UNDOADMIN 19:09 → OVERFLOW 19:09 → ER 11-18 01:40 → TELE-CENTR 11-18 15:06
PROVIDERS: ADMIT Nurse Practitioner; ATTEND Nurse Practitioner
PROC: 4A023N7 Measurement of Cardiac Sampling and Pressure, Left Heart, Percutaneous Approach (ICD-10-PCS; principal; 2024-11-19)
PROC: B211YZZ Fluoroscopy of Multiple Coronary Arteries using Other Contrast (ICD-10-PCS; 2024-11-19)
PROC: B215YZZ Fluoroscopy of Left Heart using Other Contrast (ICD-10-PCS; 2024-11-19)
PROC: B34HZZZ Ultrasonography of Right Upper Extremity Arteries (ICD-10-PCS; 2024-11-19)
PROC: 03HY32Z Insertion of Monitoring Device into Upper Artery, Percutaneous Approach (ICD-10-PCS; 2024-11-19)
DX: I48.91 Unspecified atrial fibrillation (principal); Z79.899 Other long term (current) drug therapy
CPT/HCPCS: 36415; 71045; 80048; 80307; 81001; 83735; 83880; 84443; 84484; 85025; 85610; 85730; 86850; 86900; 86901; 93005; 93306; 93458; 99152; 99291; G0378; J2250; Q9967